=== PATIENT | female | born 1935 | race Caucasian/White ===

== ENCOUNTER → 2023-05-28 12:19 | Outpatient (CLI) | payer BC, SELFPAY ==
[2023-05-28 20:02] LABS: Appearance Urine UA CLEAR; Bilirubin Urine UA NEGATIVE (NEGATIVE); Color Urine UA YELLOW; Glucose Urine UA NEGATIVE (Negative); Ketones Urine UA 1+ (NEGATIVE); Leukocyte Esterase Urine UA NEGATIVE (NEGATIVE); Nitrite Urine UA NEGATIVE (Negative); Occult Blood Urine UA NEGATIVE (Negative); Protein Urine UA TRACE (Negative); Urobilinogen Urine UA 0.2 E.U./dL (0.2); pH Urine UA 6.5 (4.5-8.0)
[2023-05-28 20:06] LABS: Bacteria Urine Occasional (0-1); Hyaline Casts Urine 5-10/LPF; RBC Urine 1-5/HPF (0-5/HPF); Squamous Epithelial Cell Urine 5-10 /HPF (0-5/HPF); WBC Urine 5-10/HPF (0-5/HPF)
[2023-05-28 20:07] LABS: Granular Casts Urine 1-5/LPF
== END ==
PROVIDERS: PCP Family Medicine; Visit Provider Physician Assistant
DX: R39.89 Other symptoms and signs involving the genitourinary system (principal); R05.9 Cough, unspecified
CPT/HCPCS: 81001; 87086

== ENCOUNTER → 2023-06-04 16:28 | Outpatient (CLI) | payer BC, SELFPAY ==
[2023-06-04 17:50] LABS: Add Manual Diff / Slide Review NO; Basophils Absolute Auto 100 /uL (0-100); Basophils Percent Auto 0.8 % (0-2); Eosinophils Absolute Auto 500 /uL (0-450); Eosinophils Percent Auto 7.5 % (2-4); Hematocrit 41.1 % (36-46); Hemoglobin 13.7 g/dL (12.0-16.0); Lymphocytes Absolute Auto 1500 /uL (1100-4500); Lymphocytes Percent Auto 22.9 % (25-40); Mean Corpuscular HGB Conc 33.3 % (30-36); Mean Corpuscular Hemoglobin 31.3 PG (26-34); Mean Corpuscular Volume 93.9 fL (80-100); Monocytes Absolute Auto 600 /uL (0-900); Monocytes Percent Auto 8.4 % (3-14); Neutrophils Absolute Auto 4000 /uL (1500-7000); Neutrophils Percent Auto 60.4 % (50-75); Platelet Count 221 X10^3/uL (150-400); Red Blood Cell Count 4.38 X10^6/uL (4.0-5.2); White Blood Cell Count 6.6 X10^3/uL (4.5-11.0)
[2023-06-04 18:08] LABS: BUN Creatinine Ratio 26.3 (6-22); Blood Urea Nitrogen 15 mg/dL (7-17); Calcium 8.7 mg/dL (8.4-10.2); Carbon Dioxide 30 mmol/L (22-32); Chloride 102 mmol/L (98-107); Estimated Glomerular Filt Rate > 60 mL/min (>60); Glucose 179 mg/dL (80-110); HEMOLYSIS < 15 (0-50); Potassium 4.2 mmol/L (3.4-5.1); Sodium 140 mmol/L (137-145)
[2023-06-04 18:11] LABS: Creatine Kinase 29 U/L (30-135)
[2023-06-04 18:20] LABS: LDL Cholesterol Direct 92 mg/dL (<100)
[2023-06-04 18:38] LABS: TSH w/ Reflex to FT4 3.93 uIU/mL (0.47-4.68)
[2023-06-04 18:56] LABS: Vitamin B12 942 pg/mL (239-931)
== END ==
PROVIDERS: Physician Assistant; PCP Family Medicine; Referring Provider Family Medicine; Visit Provider Family Medicine
DX: R39.89 Other symptoms and signs involving the genitourinary system (principal); E03.9 Hypothyroidism, unspecified; E78.5 Hyperlipidemia, unspecified; G20 Parkinson's disease; I10 Essential (primary) hypertension
CPT/HCPCS: 36415; 80048; 82550; 82607; 83721; 84443; 85025

== ENCOUNTER → 2023-10-24 11:00 | Outpatient (CLI) | payer BC, SELFPAY | PROVIDERS: PCP Family Medicine; Visit Provider Physician Assistant | DX: J02.9 Acute pharyngitis, unspecified (principal) | CPT/HCPCS: 87070; 87077; 87102 ==

== ENCOUNTER → 2024-12-02 13:09 | Outpatient (CLI) | payer BC, SELFPAY ==
[2024-12-02 19:33] LABS: Add Manual Diff / Slide Review NO; Basophils Absolute Auto 100 /uL (0-100); Basophils Percent Auto 1.2 % (0-2); Eosinophils Absolute Auto 400 /uL (0-450); Eosinophils Percent Auto 5.9 % (2-4); Hematocrit 39.1 % (36-46); Lymphocytes Absolute Auto 1800 /uL (1100-4500); Lymphocytes Percent Auto 28.2 % (25-40); Mean Corpuscular HGB Conc 33.4 % (30-36); Mean Corpuscular Hemoglobin 32.1 PG (26-34); Mean Corpuscular Volume 96.2 fL (80-100); Monocytes Absolute Auto 500 /uL (0-900); Monocytes Percent Auto 8.2 % (3-14); Neutrophils Absolute Auto 3600 /uL (1500-7000); Neutrophils Percent Auto 56.5 % (50-75); Platelet Count 221 X10^3/uL (150-400); Red Blood Cell Count 4.06 X10^6/uL (4.0-5.2); Red Cell Distribution Width 13.3 % (11.6-14.8); White Blood Cell Count 6.3 X10^3/uL (4.5-11.0)
[2024-12-02 19:49] LABS: BUN Creatinine Ratio 22.4 (6-22); Blood Urea Nitrogen 13 mg/dL (7-17); Calcium 8.9 mg/dL (8.4-10.2); Carbon Dioxide 38 mmol/L (22-32); Chloride 99 mmol/L (98-107); Estimated Glomerular Filt Rate > 60 mL/min (>60); Glucose 180 mg/dL (80-110); HEMOLYSIS < 15 (0-50); Potassium 3.1 mmol/L (3.4-5.1); Sodium 139 mmol/L (137-145)
[2024-12-02 20:22] LABS: TSH w/ Reflex to FT4 4.89 uIU/mL (0.47-4.68)
[2024-12-02 20:41] LABS: Vitamin B12 750 pg/mL (239-931)
[2024-12-02 21:28] LABS: Free T4, Direct Thyroxine 1.36 ng/dL (0.78-2.19)
== END ==
PROVIDERS: PCP Family Medicine; Visit Provider Family Medicine
DX: J45.40 Moderate persistent asthma, uncomplicated (principal); R73.9 Hyperglycemia, unspecified; E78.2 Mixed hyperlipidemia; I10 Essential (primary) hypertension; E03.9 Hypothyroidism, unspecified; G20.A1 Parkinson's disease without dyskinesia, without mention of fluctuations
CPT/HCPCS: 80048; 82607; 84439; 84443; 85025

== ENCOUNTER 2025-09-10 15:08 | Emergency (ER) | payer BC, SELFPAY ==
[2025-09-10] VITALS (9 sets, daily range): BP systolic 148–203; BP diastolic 67–84; PULSE 62–76; RESP 17–25; TEMP 36.8; O2SAT 94–96; BMI 19.5
--- NOTE | 2025-09-10 15:37 | ED.NECK ---
HPI - Neck Pain/Injury General Chief Complaint: Upper Respiratory Symptoms Stated Complaint: throat obstruction Time Seen by Provider: 09/10/25 15:25 Mode of arrival: Wheelchair History of Present Illness HPI Narrative: Patient here with her son for complaints of trouble swallowing. Patient does have history of Parkinson's. In October 2023 she was seen by primary care for speech therapy referral regarding swallowing problems. She is on thickened consistency diet. She has been doing well until today. She has had trouble swallowing medicine as well as pills as well as water. She spits everything back up. No prior history of esophageal dilatation. Related Data Home Medications ?Medication ?Instructions ?Recorded ?Confirmed CBD PO PRN 04/25/23 08/28/25 latanoprost 0.005 % eye drops drp EYE-BOTH DAILY 04/25/23 08/28/25 ondansetron HCl 8 mg tablet 8 mg PO Q8H PRN 04/25/23 08/28/25 B-12 tincture 1 drp PO 3XW 11/20/23 08/28/25 CoQ 10 BioPQQ with Shilajit 1 cap PO DAILY 11/20/23 08/28/25 D3 tincture 2 drp PO 11/20/23 08/28/25 L-glutathione PO PRN 11/20/23 08/28/25 SAS - CBD/CBG/herbs khadar emulsified 1 drp PO PRN 11/20/23 08/28/25 carbidopa ER 23.75 mg-levodopa 95 1 cap PO 7XD 11/20/23 08/28/25 mg capsule,extended release (Rytary) digestive enzymes 1 cap PO DAILY 11/20/23 08/28/25 hydralazine 25 mg tablet 25 mg PO BID PRN 11/20/23 08/28/25 lactobacillus combination no.4 3 3,000 mmu cells PO DAILY 11/20/23 08/28/25 billion cell capsule (Probiotic) magnesium L-threonate 48 mg 500 mg PO BID 11/20/23 08/28/25 magnesium (667 mg) capsule multivitamin with minerals 1 cap PO BID 11/20/23 08/28/25 quercetin 500 mg capsule 250 mg PO BID 11/20/23 08/28/25 simethicone 125 mg chewable tablet 125 mg PO BEDTIME PRN 11/20/23 08/28/25 (Gas Relief (simethicone)) thyme tincture 1 drp PO TID 11/20/23 08/28/25 triphala PO 11/20/23 08/28/25 vitamin E acetate 134 mg (200 134 mg PO DAILY 11/20/23 08/28/25 unit) capsule pimavanserin 34 mg capsule 34 mg PO DAILY 08/28/25 08/28/25 (Nuplazid) quetiapine 25 mg tablet 12.5 mg PO ONCE PM 08/28/25 08/28/25 sertraline 25 mg tablet 25 mg PO BID 08/28/25 08/28/25 Previous Rx's ?Medication ?Instructions ?Recorded albuterol sulfate 90 mcg/actuation 2 puff inhalation Q6H PRN 04/25/23 aerosol inhaler (Ventolin HFA) shortness of breath or wheezing #8.5 grams diazepam 2 mg tablet 2 mg PO BID PRN anxiety #56 tabs 08/15/23 inhalational spacing device #1 ea 10/24/23 (Vortex Holding Chamber) fluticasone propionate 230 2 puff inhalation BID #12 grams 06/30/25 mcg-salmeterol 21 mcg/actuation HFA inhaler (Advair HFA) Allergies Allergy/AdvReac Type Severity Reaction Status Date / Time Penicillins Allergy Intermediate Swelling Verified 09/10/25 15:19 of the Legs Review of Systems Review of Systems Narrative: GENERAL: Negative chills, fatigue, malaise, fever, sweats. HEENT: Negative sinus pain, ear pain, positive sore throat RESPIRATORY: Negative dyspnea, cough CARDIOVASCULAR: Negative chest pain, palpitations GASTROINTESTINAL: Negative vomiting, nausea, abdominal pain : Negative dysuria, frequency, hematuria MUSCULOSKELETAL: Negative muscle or bony pain SKIN: Negative rash, skin lesions NEUROLOGIC: Negative weakness, numbness ROS Unobtainable: All systems reviewed & are unremarkable except as noted in HPI and below Patient History Medical History (Updated 09/14/25 @ 21:47 by Nehemias Lloyd MD) Osteoporosis (~2021) Osteopenia (~2020) Chicken pox (~1939) Acoustic neuroma (~2002) Hearing loss Asthma, moderate persistent (~1956) History of hip fracture Allergic rhinitis History of compression fracture of spine Hyperlipidemia Hypothyroidism (acquired) Glaucoma Anxiety, generalized Insomnia secondary to chronic pain Hypertension, essential Parkinsons disease Surgical History (Updated 07/23/23 @ 20:26 by Cathi Galvez) Anesthesia S/P correction of deviated nasal septum (~1955) History of arthroplasty (~2017) History of tubal ligation (~1969) Family History (Updated 07/23/23 @ 20:30 by Cathi Galvez) Father History of heart disease Hypertension Mother Pneumonia Brother Hypertension Brother History of heart disease Hypertension Sister Cancer Sister Cancer Grandfather Stroke Grandmother Tuberculosis Smoking Status: Never smoker Exam Narrative Exam Narrative: GENERAL: in no distress, not toxic not dyspneic HEAD: Normocephalic. EYES: Pupils equal round ENT: Mucous membranes moist. No pharyngeal erythema edema exudates NECK: Trachea midline. No midline shift. No stridor. CARDIOVASCULAR: Regular rate and rhythm RESPIRATORY: Clear to auscultation. Breath sounds equal bilaterally. No wheezes, rales, or rhonchi. GASTROINTESTINAL: Abdomen soft, non-tender BACK: No flank tenderness. EXTREMITIES: No gross deformities. NEURO: AOx4. Clear speech SKIN: Warm and dry PSYCH: Not anxious, is cooperative Initial Vital Signs Initial Vital Signs: Vital Signs Temperature 98.3 F 09/10/25 15:18 Pulse Rate 76 09/10/25 15:18 Respiratory Rate 17 09/10/25 15:18 Blood Pressure 203/84 H 09/10/25 15:18 Pulse Oximetry 96 09/10/25 15:18 Oxygen Delivery Method Room Air 09/10/25 15:18 Course Orders Ordered: Discontinued Medications Hydralazine HCl (Hydralazine 20 Mg/Ml Vial) 5 mg IV NOW ONE Stop: 09/10/25 16:45 Last Admin: 09/10/25 17:04 Dose: 5 mg Documented By: LEANN Sodium Chloride (Normal Saline 0.9%) 500 mls @ 1,000 mls/hr IV BOLUS ONE Stop: 09/10/25 17:16 Last Infusion: 09/10/25 17:58 Dose: Infused Documented By: Admin: 09/10/25 17:04 Dose: 1,000 mls/hr Documented By: LEANN Vital Signs Vital signs: Vital Signs - 8 hr 09/10/25 15:18 09/10/25 17:04 09/10/25 17:57 Temperature 98.3 F Pulse Rate 76 62 70 Respiratory Rate 17 Blood Pressure 203/84 H 181/82 H 165/75 H Pulse Oximetry 96 Oxygen Delivery Method Room Air MDM - Neck Pain/Injury Lab Data 09/10/25 15:56 09/10/25 15:56 Labs: Lab Results 09/10/25 09/10/25 Range/Units 15:15 15:56 WBC 8.4 (4.5-11.0) X10^3/uL RBC 4.40 (4.0-5.2) X10^6/uL Hgb 13.3 (12.0-16.0) g/dL Hct 40.0 (36-46) % MCV 90.9 (80-100) fL MCH 30.3 (26-34) PG MCHC 33.4 (30-36) % RDW 14.3 (11.6-14.8) % Plt Count 256 (150-400) X10^3/uL Neut % (Auto) 55.4 (50-75) % Lymph % (Auto) 26.6 (25-40) % Hyde % (Auto) 8.0 (3-14) % Eos % (Auto) 9.7 H (2-4) % Baso % (Auto) 0.3 (0-2) % Neut # (Auto) 4600 (4454-1972) /uL Lymph # (Auto) 2200 (3191-9325) /uL Hyde # (Auto) 700 (0-900) /uL Eos # (Auto) 800 H (0-450) /uL Baso # (Auto) 0 (0-100) /uL Sodium 137 (137-145) mmol/L Potassium 4.5 (3.4-5.1) mmol/L Chloride 103 (98-107) mmol/L Carbon Dioxide 26 (22-32) mmol/L BUN 13 (7-17) mg/dL Creatinine 0.52 (0.52-1.04) mg/dL Estimated GFR > 60 (>60) mL/min BUN/Creatinine Ratio 25.0 H (6-22) Glucose 89 (70-99) mg/dL Calcium 8.9 (8.4-10.2) mg/dL Total Bilirubin 0.8 (0.2-1.3) mg/dL AST 37 H (14-36) IU/L ALT 5 (<35) IU/L Alkaline Phosphatase 151 H (38-126) U/L Total Protein 7.9 (6.3-8.2) g/dL Albumin 4.4 (3.5-5.0) g/dL Globulin 3.5 (1.7-4.1) g/dL Albumin/Globulin Ratio 1.3 (1.0-2.8) SARS-CoV-2 (PCR) Negative (Negative) Influenza A (RT-PCR) Flu a negative (NEGATIVE) Influenza B (RT-PCR) Flu b negative (NEGATIVE) RSV (PCR) Negative (Negative) Imaging Data X-ray soft tissue neck: Radiologist's Impression: [address] [address] XRay Report Signed Patient: Grace Scott MR#: [id number] : 1935 Acct:[id number] Age/Sex: 89 / F Date of Service: 09/10/25 Loc: ED Accession Number: [id number] Procedure: XR soft tissue neck Ordering Provider: Neil Navarrete MD PROCEDURE: XR SOFT TISSUE NECK INDICATIONS: Dysphagia TECHNIQUE: 2 views of the neck were acquired. COMPARISON: None. FINDINGS: Airway: The airway appears patent. Soft tissues: Prevertebral soft tissues are normal in thickness. The epiglottis and aryepiglottic folds appear normal. No soft tissue gas. Atherosclerotic calcifications in the aortic arch. Bones: No suspicious bony lesions. Mild to moderate degenerative changes in the cervical spine. Generalized bony demineralization. IMPRESSION: No acute abnormality. Approved by: Edgardo Sawyer M.D. on 09/10/2025 at 16:19 MDM Narrative Medical decision making narrative: Patient here with her son for complaints of trouble swallowing. Patient does have history of Parkinson's. In October 2023 she was seen by primary care for speech therapy referral regarding swallowing problems. She is on thickened consistency diet. She has been doing well until today. She has had trouble swallowing medicine as well as pills as well as water. She spits everything back up. No prior history of esophageal dilatation. MDM After history and exam, CBC CMP General surgery consult Differential considered: Includes but not limited to dysphagia, esophageal rupture Medical records reviewed: October 24, 2023 office visit for dysphagia Lab Test results independently reviewed as above. Pertinent findings: WBC 8.4 hemoglobin 13.3 sodium 137 potassium 4.5 BUN 13 creatinine 0.52 Imaging studies independently reviewed: X-ray soft tissue neck no acute finding Consultations: 3:43 p.m.. Spoke with General surgery Dr. Milian, patient will need to be transferred for Gastroenterology Services/likely esophageal dilatation. 5:30 p.m.. I spoke with [facility] hospitalist Dr. Fitzgerald, you will review with the GI team for accepting patient Re-evaluations: 5:36 p.m.. Updated patient and son treatment plan and they still do agree for transferred to [facility] for endoscopy for the esophagus. Son states patient is DNR DNI with selective treatments. Discussion: Appropriate for transfer for higher level of care for GI services. Airway is intact. Diagnosis: Esophageal stricture 6:20 p.m.. [facility] has called back and they will take patient. Discharge Plan Departure Patient Disposition: [facility] Clinical Impression: Esophageal stricture Prescriptions: No Action diazepam 2 mg tablet 2 mg PO BID PRN (Reason: anxiety) Qty: 56 0RF Rx Instructions: Must last 56 days. Release date 08/15/23 ([facility] [place]) Vortex Holding Chamber Spacer See Rx Instructions .Route Qty: 1 0RF Rx Instructions: As directed with inhaler hydralazine 25 mg tablet 25 mg PO BID PRN Rx Instructions: Take 1 tablet (25mg) by mouth 2(two) times a day. Rytary 23.75-95 mg capsule, extended release 1 cap PO 7XD Rx Instructions: 1-2 caps by mouth 7 times daily 5am, 8am, 11am, 2pm, 5pm, 8pm, 11pm magnesium L-threonate 48 mg magnesium (667 mg) capsule 500 mg PO BID Probiotic 3 billion cell capsule 3,000 mmu cells PO DAILY Rx Instructions: administer with a meal simethicone [Gas Relief (simethicone)] 125 mg tablet,chewable 125 mg PO BEDTIME PRN Rx Instructions: 1 tablet after eating or bedtime - max 4 tablets per day thyme tincture 672 mg 1 drp PO TID L-glutathione 200 mg PO PRN Rx Instructions: nebulized PRN in colloidal solver solution asthma- mucus digestive enzymes Capsule 1 cap PO DAILY Rx Instructions: administer with food; swallow whole; do not crush/chew/dissolve/break/cut multivitamin with minerals Capsule 1 cap PO BID quercetin 500 mg capsule 250 mg PO BID triphala 600 mg PO Rx Instructions: 1 cap with meals, 2-3 times per day Digestion B-12 tincture 5,000 mcg 1 drp PO 3XW CoQ 10 BioPQQ with Shilajit 150 mg 1 cap PO DAILY D3 tincture 67 mcg 2 drp PO Rx Instructions: 2 droppers 5000 IU daily vitamin E acetate 134 mg (200 unit) capsule 134 mg PO DAILY SAS - CBD/CBG/herbs khadar emulsified 1,000 mg emulsion 1 drp PO PRN Rx Instructions: 4-8 drops at bedtime for sleep or for anxiety PRN insomnia - anxiety fluticasone propion-salmeterol [Advair HFA] 230-21 mcg/actuation HFA aerosol inhaler 2 puff inhalation BID Qty: 12 5RF albuterol sulfate [Ventolin HFA] 90 mcg/actuation HFA aerosol inhaler 2 puff inhalation Q6H PRN (Reason: shortness of breath or wheezing) Qty: 8.5 0RF latanoprost 0.005 % drops EYE-BOTH DAILY Rx Instructions: Administer 1 drop into both eyes daily ondansetron HCl 8 mg tablet 8 mg PO Q8H PRN Rx Instructions: Take 1 tablet (8mg total) by mouth every 8(eight) hours as needed for nausea or vomiting CBD PO PRN Rx Instructions: CBD Supplement taking for Parkinsons. Taking 15 drops per day quetiapine 25 mg tablet 12.5 mg PO ONCE PM sertraline 25 mg tablet 25 mg PO BID Nuplazid 34 mg capsule 34 mg PO DAILY Referrals: Nehemias Lloyd MD [Primary Care Provider, Family Practice]
--- NOTE | 2025-09-10 15:43 | DI.RAD.S_ITS ---
PROCEDURE: XR SOFT TISSUE NECK INDICATIONS: Dysphagia TECHNIQUE: 2 views of the neck were acquired. COMPARISON: None. FINDINGS: Airway: The airway appears patent. Soft tissues: Prevertebral soft tissues are normal in thickness. The epiglottis and aryepiglottic folds appear normal. No soft tissue gas. Atherosclerotic calcifications in the aortic arch. Bones: No suspicious bony lesions. Mild to moderate degenerative changes in the cervical spine. Generalized bony demineralization. IMPRESSION: No acute abnormality. Approved by: Edgardo Sawyer M.D. on 09/10/2025 at 16:19
[2025-09-10 16:06] LABS: Add Manual Diff / Slide Review NO; Hematocrit 40.0 % (36-46); Hemoglobin 13.3 g/dL (12.0-16.0); Lymphocytes Absolute Auto 2200 /uL (1100-4500); Mean Corpuscular HGB Conc 33.4 % (30-36); Mean Corpuscular Hemoglobin 30.3 PG (26-34); Mean Corpuscular Volume 90.9 fL (80-100); Platelet Count 256 X10^3/uL (150-400)
[2025-09-10 16:18] LABS: Alanine Aminotransferase 5 IU/L (<35); Albumin 4.4 g/dL (3.5-5.0); Albumin Globulin Ratio 1.3 (1.0-2.8); Alkaline Phosphatase 151 U/L (38-126); Blood Urea Nitrogen 13 mg/dL (7-17); Calcium 8.9 mg/dL (8.4-10.2); Carbon Dioxide 26 mmol/L (22-32); Chloride 103 mmol/L (98-107); Estimated Glomerular Filt Rate > 60 mL/min (>60); Globulin 3.5 g/dL (1.7-4.1); Glucose 89 mg/dL (70-99); Potassium 4.5 mmol/L (3.4-5.1); Sodium 137 mmol/L (137-145); Total Protein 7.9 g/dL (6.3-8.2)
[2025-09-10 16:22] LABS: Influenza A - CEPHEID Flu A NEGATIVE (NEGATIVE); Influenza B - CEPHEID Flu B NEGATIVE (NEGATIVE)
[2025-09-10 16:23] LABS: HEMOLYSIS 79 (0-50)
[2025-09-10 16:29] LABS: COVID-19 CEPHEID 4-PLEX PCR Negative (Negative)
[2025-09-10] MEDS: SODIUM CHLORIDE 0.9% 500 ML 1000 ML IV (17:04)
[2025-09-10] MEDS: hydrALAZINE 20 MG/ML VIAL 5 MG IV (17:04)
--- NOTE | 2025-09-10 17:22 | PC.NURSE ---
pt called me in to let me know that she felt a little bit of food go down. We attempted to do a swallow test with some water. Reports it's softer . pt did cough. HOB up [address] Navarrete at bedside.
--- NOTE | 2025-09-10 19:13 | PC.NURSE ---
pt has maintained her airway during ER visit. reports she is feeling better. son is at the bedside. Transferring to [facility].
== END 2025-09-10 19:20 | disposition short-term general hospital (02) ==
PROVIDERS: Emergency Provider Emergency Medicine; PCP Family Medicine
DX: K22.2 Esophageal obstruction (principal); G20.A1 Parkinson's disease without dyskinesia, without mention of fluctuations
CPT/HCPCS: 36415; 70360; 80053; 85025; 87637; 96361; 96374; 99284; J0360; J7040

== ENCOUNTER → 2025-09-16 11:48 | Outpatient (CLI) | payer BC, SELFPAY ==
[2025-09-16 18:59] LABS: HEMOLYSIS < 15 (0-50); Hemoglobin A1C% w Est Avg Glu 5.6 % (4.0-6.0)
[2025-09-16 19:00] LABS: Alkaline Phosphatase 138 U/L (38-126); Blood Urea Nitrogen 30 mg/dL (7-17); Calcium 9.4 mg/dL (8.4-10.2); Carbon Dioxide 28 mmol/L (22-32); Chloride 103 mmol/L (98-107); Estimated Glomerular Filt Rate > 60 mL/min (>60); Glucose 113 mg/dL (70-99); Magnesium 2.1 mg/dL (1.6-2.3); Phosphorous 4.2 mg/dL (2.8-4.1); Potassium 3.7 mmol/L (3.4-5.1); Sodium 142 mmol/L (137-145)
[2025-09-16 19:21] LABS: Vitamin D 25 Hydroxy (D3) 41.9 ng/mL (30.0-100.0)
[2025-09-16 20:13] LABS: Folate 10.8 ng/mL (2.76-20.0)
[2025-09-19 06:40] LABS: Calcium 9.5 mg/dL (8.7-10.3); Parathyroid Hormone, Intact 24 pg/mL (15-65)
== END ==
PROVIDERS: PCP Family Medicine; Visit Provider Family Medicine
DX: Z01.89 Encounter for other specified special examinations (principal); M81.0 Age-related osteoporosis without current pathological fracture; R73.9 Hyperglycemia, unspecified
CPT/HCPCS: 80048; 82306; 82310; 82746; 83036; 83090; 83735; 83970; 84075; 84100

== ENCOUNTER → 2025-09-25 19:20 | Outpatient (CLI) | payer BC, SELFPAY ==
--- NOTE | 2025-09-25 19:23 | DI.MRI.S_ITS ---
PROCEDURE: MR HEAD/BRAIN WO CON
== END ==
LOC: MRI 19:21
PROVIDERS: PCP Family Medicine; Referring Provider Psychiatry & Neurology Neurology; Visit Provider Psychiatry & Neurology Neurology
DX: G20.B2 Parkinson's disease with dyskinesia, with fluctuations (principal); J32.8 Other chronic sinusitis; G93.9 Disorder of brain, unspecified
CPT/HCPCS: 70551